=== PATIENT | male | born 1985 | race Caucasian/White ===

== ENCOUNTER 2018-10-23 13:05 | Emergency (ER) | payer MEDICAID, OTHER ==
[~2018-10-23] VITALS: Wt 100.9 kg
[~2018-10-23 13:05] MED LIST: IBUP-1542 PO; ONDA4TAB14 PO
[2018-10-23] MEDS ORDERED: ONDANSETRON 4 MG INJ IV STA (15:20)
[2018-10-23] MEDS ORDERED: LIDOCAINE/MYLANTA 40 ML BTL PO STA (15:20)
[2018-10-23] MEDS ORDERED: BELLADONNA/PHENOBARBITAL TAB PO STA (15:20)
[2018-10-23] MEDS ORDERED: FAMOTIDINE 20 MG TAB PO STA (15:20)
[2018-10-23] MEDS ORDERED: SOD CHLORIDE 0.9% 1,000 ML IV STA (15:20)
[2018-10-23] MEDS ORDERED: LORAZEPAM 2 MG INJ IV ONE (15:30)
--- NOTE | 2018-10-23 16:32 | ERD ---
ER Documentation Chief Complaint Chief Complaint RECTAL BLEEDING FOR SEVERAL FDAYS, ABD PAIN, HEAVY ETOH DRINKER HPI 33-year-old man with a long history of alcoholism presents with 3 days of intermittent blood in his stool, he had a similar symptom which resolved spontaneously a few years ago and felt it might be hemorrhoidal. He admits to drinking alcohol but is currently in the process of finding a alcohol rehab facility. He states he also has a history of pancreatitis and would like his labs checked. He states he has been belching and has had bloating for the last couple of weeks as well. Patient denies hemoptysis, no hematemesis. He denies fevers or chills, no vomiting or diarrhea, no headache or blurry vision, no loss of consciousness or dizziness. ROS All systems reviewed and are negative except as per history of present illness. Medications Home Meds Active Scripts Famotidine* (Pepcid*) 20 Mg Tablet, 20 MG PO BID, #30 TAB Prov:JOSE RAUL TRACEY MD 10/23/18 Discontinued Scripts Ondansetron (Ondansetron Odt) 4 Mg Tab.rapdis, 4 MG PO Q6H PRN for NAUSEA AND/OR VOMITING, #10 TAB Prov:SHANE FRANKEL PA-C 05/01/16 Ibuprofen* (Motrin*) 600 Mg Tab, 600 MG PO Q6, #30 TAB Prov:SHANE FRANKEL PA-C 05/01/16 Allergies Allergies: Coded Allergies: No Known Allergy (Unverified , 10/23/18) PMhx/Soc Alcoholism History of Surgery: No Anesthesia Reaction: No Hx Neurological Disorder: No Hx Respiratory Disorders: No Hx Cardiac Disorders: No Hx Psychiatric Problems: No Hx Miscellaneous Medical Probl: Yes (ALCOHOLISM, PANCREATITIS) Hx Alcohol Use: Yes Hx Substance Use: No Hx Tobacco Use: No Smoking Status: Never smoker FmHx Family History: No diabetes Physical Exam Vitals Vital Signs Date Temp Pulse Resp B/P (MAP) Pulse Ox O2 O2 Flow FiO2 Time Delivery Rate 10/23/18 98.1 84 19 124/96 97 Room Air 16:54 (105) 10/23/18 98.1 93 19 136/86 97 Room Air 15:36 (103) 10/23/18 98.1 98 17 151/90 97 13:12 (110) Physical Exam GENERAL: Well-developed, well-nourished, well-hydrated, in no apparent distress, looks nontoxic in appearance HEENT: Moist mucous membranes, pink conjunctiva, no cervical spine tenderness or step-off deformities, no goiter, no jaundice or icterus, extraocular movements intact without pain. No submandibular induration, and no pharyngeal erythema NEURO: Alert and oriented 3, cranial nerves II through XII intact bilaterally, pupils equal round reactive to light, no focal deficits or facial asymmetry, sensation intact distally Strength 5/5 in upper and lower extremities bilaterally CARDIAC: Regular rate and rhythm, no murmurs rubs or gallops LUNGS: Clear bilaterally no wheezing crackles or stridor ABDOMEN: Soft nontender, no guarding, no rigidity, no rebound, no psoas sign no obturator sign. Normoactive bowel sounds SKIN: Warm and dry to touch, no abrasions, contusions, or hematomas, no lacerations, no ecchymosis, no target lesions, and without ulcers EXTREMITIES: No clubbing cyanosis or edema, calves are bilaterally symmetrical, no Homans sign, no popliteal cord sign. Distal pulses equal and bilateral PSYCH: Normal affect without agitation or irritability Result Diagram: 10/23/18 1530 10/23/18 1530 Results 24 hrs Laboratory Tests Test 10/23/18 15:30 White Blood Count 8.0 10^3/ul Red Blood Count 5.07 10^6/ul Hemoglobin 14.9 g/dl Hematocrit 45.0 % Mean Corpuscular Volume 88.8 fl Mean Corpuscular Hemoglobin 29.4 pg Mean Corpuscular Hemoglobin Concent 33.1 g/dl Red Cell Distribution Width 13.5 % Platelet Count 198 10^3/UL Mean Platelet Volume 9.1 fl Immature Granulocytes % 0.600 % Neutrophils % 68.7 % Lymphocytes % 22.7 % Monocytes % 6.1 % Eosinophils % 1.0 % Basophils % 0.9 % Nucleated Red Blood Cells % 0.0 /100WBC Immature Granulocytes # 0.050 10^3/ul Neutrophils # 5.5 10^3/ul Lymphocytes # 1.8 10^3/ul Monocytes # 0.5 10^3/ul Eosinophils # 0.1 10^3/ul Basophils # 0.1 10^3/ul Nucleated Red Blood Cells # 0.0 10^3/ul Sodium Level 141 mmol/L Potassium Level 4.5 mmol/L Chloride Level 107 mmol/L Carbon Dioxide Level 22 mmol/L Anion Gap 12 Blood Urea Nitrogen 15 mg/dl Creatinine 0.92 mg/dl Est Glomerular Filtrat Rate mL/min > 60 mL/min Glucose Level 94 mg/dl Calcium Level 8.8 mg/dl Total Bilirubin 0.3 mg/dl Direct Bilirubin 0.00 mg/dl Indirect Bilirubin 0.3 mg/dl Aspartate Amino Transf (AST/SGOT) 65 IU/L Alanine Aminotransferase (ALT/SGPT) 68 IU/L Alkaline Phosphatase 113 IU/L Ammonia 20 umol/l Troponin I < 0.012 ng/ml Total Protein 7.4 g/dl Albumin 4.2 g/dl Globulin 3.20 g/dl Albumin/Globulin Ratio 1.31 Lipase 221 U/L Current Medications Medications Dose Sig/Sraah Start Time Status Last (Trade) Ordered Route PRN Stop Time Admin Dose Reason Admin Lorazepam 0.5 mg ONCE ONCE 10/23/18 DC 10/23/18 (Ativan) IV 15:30 10/23/18 15:31 15:31 Sodium 1,000 ml @ Q1H STAT 10/23/18 DC 10/23/18 Chloride 1,000 mls/hr IV 15:20 10/23/18 15:32 16:19 Ondansetron 4 mg ONCE STAT 10/23/18 DC 10/23/18 HCl (Zofran IV 15:20 10/23/18 16:31 Inj) 15:22 Famotidine 20 mg ONCE STAT 10/23/18 DC 10/23/18 (Pepcid) PO 15:20 10/23/18 15:32 15:22 40 ml ONCE STAT 10/23/18 DC 10/23/18 Miscellaneous PO 15:20 10/23/18 15:31 Medication 15:22 (Gi Cocktail (2)) Belladonna/ 2 tab ONCE STAT 10/23/18 DC 10/23/18 Phenobarbital PO 15:20 10/23/18 15:31 () 15:22 Procedures/MDM IV line was established patient was placed on court recording monitor rhythm strip revealed a sinus rhythm at about 80 bpm with upright P and T waves. Patient was afebrile EKG performed, read by me revealed a normal sinus rhythm at 86 bpm, normal axis, right ventricular conduction delay QRS duration 108 ms, no concerning ST elevations or depressions noted CBC was normal with a hemoglobin of 15, electrolytes normal, liver function tests unremarkable, lipase normal, troponin negative, ammonia level within normal limits I administered 1 L normal saline IV, Zofran 4 mg IV, famotidine p.o., GI cocktail p.o., and lorazepam 0.5 mg IV x1. Patient's vital signs remained normal and he felt much better, he had no bowel m ovements or blood per rectum here in the ER and labs are unremarkable. I did tell him if rectal bleeding continues he will have to follow-up with manpower development manager for possible colonoscopy but most likely cause for his rectal bleeding is hemorrhoidal versus venous engorgement secondary to portal h ypertension. I also gave him the address and phone number to nearby alcoholic rehab clinics. Differential diagnoses considered, included but not limited to acute coronary syndrome, pulmonary embolism, aortic dissection, abdominal aortic aneurysm, sepsis, stroke, meningitis, encephalitis, pneumonia, appendicitis, cholecystitis, bowel obstruction, pyelonephritis, nephrolithiasis, cystitis, as well as metabolic, hematologic, and electrolyte abnormalities. As well as abscess, cellulitis, fractures, and dislocations. Patient feels much better at this time, and vital signs are normal, symptoms menjivar ve improved. I did give strict instructions to return to the ED if symptoms continue or worsen, patient will otherwise follow-up with primary care physician. Patient understood instructions and agreed to plan. Disclaimer: Inadvertent spelling and grammatical errors are likely due to EHR/dictation software use and do not reflect on the overall quality of patient care. Also, please note that the electronic time recorded on this note does not necessarily reflect the actual time of the patient encounter. Departure Diagnosis: Primary Impression: Alcohol abuse Additional Impression: Rectal bleeding Condition: Good JOSE RAUL TRACEY MD Oct 23, 2018 16:32
[2018-10-23] MEDS ORDERED: FAMO-96 PO (16:49)
[2018-10-23 16:54] VITALS: BP 124/96; PULSE 84; RESP 19
== END 2018-10-23 18:07 | disposition home or self-care (01) ==
LOC: E/R 13:05
DX: F10.10 Alcohol abuse, uncomplicated (principal); R10.9 Unspecified abdominal pain
CPT/HCPCS: 36415; 80053; 82140; 83690; 84484; 85025; 86850; 86900; 86901; 93005; 96374; 96375; J2060; J2405; J7030; Z7502; Z7610